=== PATIENT | female | born 2000 | race Two or more races ===

== ENCOUNTER 2022-08-03 03:28 | Emergency (ER) | payer OTHER ==
[~2022-08-03] VITALS: Ht 151.1 cm; Wt 44.9 kg
[2022-08-03] MEDS ORDERED: LEXAPRO5 MG PO (03:29)
[2022-08-03] MEDS ORDERED: PEPCID40 MG PO (06:36)
[2022-08-03] MEDS ORDERED: ONDANSETRON ODT4 MG PO (06:36)
== END 2022-08-03 06:45 | disposition home or self-care (01) ==
LOC: ER 03:28 → EDBD 04:05 → ER 04:05
DX: R10.13 Epigastric pain (principal); R11.2 Nausea with vomiting, unspecified